=== PATIENT | female | born 1965 | race African-American/Black ===

== ENCOUNTER 2017-04-21 09:23 | Emergency (ER) | payer MEDICAID ==
[~2017-04-21] VITALS: Ht 162.6 cm; Wt 113.0 kg
[2017-04-21 09:31] VITALS: BP 125/60
[2017-04-21] MEDS ORDERED: TETANUS, DIPHTHERIA, PERTUSSIS VAC/PF 0.5ML (>7YR OLD) IM ONE (09:45)
[2017-04-21] MEDS ORDERED: LIDOCAINE HCL 1% 20ML VIAL (Pyxis) INJ INFIL ONE (09:45)
== END 2017-04-21 11:29 | disposition home or self-care (01) ==
LOC: ER 09:31
DX: S61.213A Laceration without foreign body of left middle finger without damage to nail, initial encounter (principal); W27.8XXA Contact with other nonpowered hand tool, initial encounter; Y93.89 Activity, other specified; Y92.89 Other specified places as the place of occurrence of the external cause; Y99.8 Other external cause status
CPT/HCPCS: 12001; 73130; 90471; 90715; 99284; J3490; X7700; Z7610; 12031

== ENCOUNTER 2017-05-11 10:53 | Emergency (ER) | payer MEDICAID ==
[~2017-05-11] VITALS: Ht 172.7 cm; Wt 109.0 kg
[2017-05-11 10:54] VITALS: BP 128/70
== END 2017-05-11 12:36 | disposition home or self-care (01) ==
LOC: ER 10:53
DX: Z48.02 Encounter for removal of sutures (principal); Z98.51 Tubal ligation status
CPT/HCPCS: 99282; Z7610

== ENCOUNTER 2018-06-29 10:48 | Emergency (ER) | payer MEDICAID ==
[~2018-06-29] VITALS: Ht 160 cm; Wt 115.0 kg
[2018-06-29] MEDS ORDERED: ACETAMINOPHEN WITH CODEINE 300/30MG TABLET PO ONE (11:30)
[2018-06-29 11:34] VITALS: BP 148/100
== END 2018-06-29 13:19 | disposition home or self-care (01) ==
LOC: ER 11:25
DX: S70.01XA Contusion of right hip, initial encounter (principal); S30.0XXA Contusion of lower back and pelvis, initial encounter; W01.0XXA Fall on same level from slipping, tripping and stumbling without subsequent striking against object, initial encounter; Y93.89 Activity, other specified; Y92.89 Other specified places as the place of occurrence of the external cause
CPT/HCPCS: 72100; 73502; 99284

== ENCOUNTER 2022-05-21 12:48 | Emergency (ER) | payer MEDICAID ==
[~2022-05-21] VITALS: Ht 167.6 cm; Wt 91.0 kg
[2022-05-21 12:54] VITALS: BP 118/59
[2022-05-21] MEDS ORDERED: CIPHCO EACH EAR (15:00)
== END 2022-05-21 15:29 | disposition home or self-care (01) ==
LOC: ER 12:48
DX: H60.91 Unspecified otitis externa, right ear (principal); Z98.51 Tubal ligation status; Z91.040 Latex allergy status; Z98.890 Other specified postprocedural states
CPT/HCPCS: 99281